=== PATIENT | female | born 1975 | race Caucasian/White ===

== ENCOUNTER 2018-09-10 14:12 | Emergency (ER) | payer OTHER ==
[2018-09-10] MEDS ORDERED: KETOROLAC 15 MG/1 ML SDV IVP ONE (15:00)
[2018-09-10] MEDS ORDERED: NS 1,000 ML IV ONE (15:00)
--- NOTE | 2018-09-10 15:07 | EDPHY ---
H & P Stated Complaint: abd pain, bloating, warm sensation started yesterday. s/p gall bladder Time Seen by Provider: 09/10/18 14:47 HPI/ROS: Chief Complaint: Abdominal pain, fevers, malaise HPI: 43-year-old woman who is 5 days status post emergency cholecystectomy is presenting with upper abdominal pain, fever, malaise and fatigue. Patient states she was flying back from [place] and developed severe upper abdominal and chest pain. The flight was diverted to [place]. In the hospital leak in the breast the patient was diagnosed with what sounds like acute cholecystitis and underwent emergency cholecystectomy. Patient states she was borderline septic and received IV antibiotics in the hospital but was not discharged on any antibiotics. She did have some residual pain which she attributed to the CO2 which is resolved over the course of the last 2 days has been having a worsening burning sensation in her upper abdomen. Pain is about a 7/10. She did have some constipation but that was relieved with Fleet's enema. She has had some subjective chills and fever, general flu-like symptoms, malaise, body aches, no shortness of breath. No cough. No nausea or vomiting. ROS: 10 systems were reviewed and were negative except those elements noted in the HPI. PMH: Perimenopausal Social History: No smoking, no alcohol, no recreational drug use Family History: non-contributory Physical Exam: Gen: Awake, Alert, No Distress HEENT: Nose: no rhinorrhea Eyes: PERRLA, EOMI Mouth: Moist mucosa Neck: Supple, no JVD Chest: nontender, lungs clear to auscultation Heart: S1, S2 normal, no murmur Abd: Soft, four intact laparoscopy incisions which are nontender, no erythema,. Abdomen is mild diffuse tenderness, soft. Moderate epigastric tenderness, no guarding Back: no CVA tenderness, no midline tenderness Ext: no edema, non-tender Skin: no rash Neuro: CN II-XII intact, Sensation grossly intact, Strength 5/5 in bilateral upper and lower extremities - Personal History LMP (Females 10-55): 1-7 Days Ago Tetanus Vaccine Date: 2016 - Medical/Surgical History Hx Asthma: No Hx Chronic Respiratory Disease: No Hx Diabetes: No Hx Cardiac Disease: No Hx Renal Disease: No Hx Cirrhosis: No Hx Alcoholism: No Hx HIV/AIDS: No Hx Splenectomy or Spleen Trauma: No Other PMH: neck surgery,ruptured ovarian cyst,appy, gall bladder - Social History Smoking Status: Never smoked Constitutional: Initial Vital Signs Temperature (C) 36.4 C 09/10/18 14:20 Heart Rate 82 09/10/18 14:20 Respiratory Rate 18 09/10/18 14:20 Blood Pressure 150/85 H 09/10/18 14:20 O2 Sat (%) 100 09/10/18 14:20 O2 Delivery Mode Room Air Allergies/Adverse Reactions: Penicillins Allergy (Severe, Verified 09/10/18 14:19) Other-Enter Comments Sulfa (Sulfonamide Antibiotics) Allergy (Verified 09/10/18 14:19) Home Medications: Medication Instructions Recorded traMADol [Ultram 50 mg (*)] 50 - 100 mg PO Q4 PRN #20 tab 12/27/17 Hormone Replacement Therapy 09/10/18 Medical Decision Making - Diagnostics Imaging Results: Imaging Impressions Abdomen CT 09/10/18 14:59 Impression: 1. Postsurgical change of recent cholecystectomy without evidence of abscess or large bile leak. 2. Punctate nonobstructing right nephrolithiasis. Geo Agosto was notified of these findings by telephone at 3:59 PM on 2018 ED Course/Re-evaluation: 43-year-old with postoperative pain status post emergency cholecystectomy 5 days ago. CBC is normal. LFTs are normal. Influenza is negative. CT scan of the abdomen pelvis shows expected postoperative changes. No evidence of a bile leak or focal abscess. Plan will be for discharge, follow up with primary care next week. Continue oral hydration. Tylenol and motion. Avoid narcotics in ondansetron as these can be constipating. - Data Points Laboratory Results: 09/10/18 14:46 POC Sodium 142 mEq/L mEq/L (135-145) POC Potassium 3.7 mEq/L mEq/L (3.3-5.0) POC Chloride 110.0 mEq/L mEq/L (97-110) POC Total CO2 27 mEq/L mEq/L (22-31) POC BUN 9 mg/dL mg/dL (7-23) POC Creatinine 0.7 mg/dL mg/dL (0.6-1.0) POC Glucose 127 mg/dL H mg/dL (70-100) POC Calcium 9.3 mg/dL mg/dL (8.5-10.4) POC Total Bilirubin 0.9 mg/dL mg/dL (0.1-1.4) POC AST 28 IU/L IU/L (14-46) POC ALT 38 IU/L IU/L (9-52) POC Alk Phosphatase 85 IU/L IU/L (38-126) POC Total Protein 7.2 g/dL g/dL (6.3-8.2) POC Albumin 3.8 g/dL g/dL (3.5-5.0) Medications Given: Discontinued Medications Sodium Chloride (Ns) 1,000 mls @ 0 mls/hr IV ONCE ONE; Wide Open PRN Reason: Protocol Stop: 09/10/18 15:01 Last Admin: 09/10/18 15:33 Dose: 1,000 mls Ketorolac Tromethamine (Toradol) 15 mg IVP EDNOW ONE Stop: 09/10/18 15:01 Last Admin: 09/10/18 15:33 Dose: 15 mg Metoclopramide HCl (Reglan Injection) 10 mg IVP EDNOW ONE Stop: 09/10/18 15:44 Last Admin: 09/10/18 15:45 Dose: 10 mg Point of Care Test Results: CBC CBC Collection Date 09/10/18 CBC Collection Time 14:40 WBC 8.25 RBC 4.72 HGB 15.5 HCT 43.0 PLT 207 Neut # 5.11 Neut 61.9 LYMPH # 2.45 LYMPH 29.7 MCV 91.1 Chemistry 09/10/18 14:46 POC Sodium 142 mEq/L mEq/L (135-145) POC Potassium 3.7 mEq/L mEq/L (3.3-5.0) POC Chloride 110.0 mEq/L mEq/L (97-110) POC Total CO2 27 mEq/L mEq/L (22-31) POC BUN 9 mg/dL mg/dL (7-23) POC Creatinine 0.7 mg/dL mg/dL (0.6-1.0) POC Glucose 127 mg/dL H mg/dL (70-100) POC Calcium 9.3 mg/dL mg/dL (8.5-10.4) POC Total Bilirubin 0.9 mg/dL mg/dL (0.1-1.4) POC AST 28 IU/L IU/L (14-46) POC ALT 38 IU/L IU/L (9-52) POC Alk Phosphatase 85 IU/L IU/L (38-126) POC Total Protein 7.2 g/dL g/dL (6.3-8.2) POC Albumin 3.8 g/dL g/dL (3.5-5.0) Urine Dip Collection Date 09/10/18 Collection Time 14:30 Specific [place] (1.002-1.030) 1.020 PH (5.0-7.5) 6.5 Leukocytes (Negative) Negative Nitrites (Negative) Negative Protein (Negative) Negative Glucose (Negative) Negative Ketones (Negative) Negative Urobilnogen (0.2-1.0 EU) 0.2 Bilirubin (Negative) Negative Blood (Negative) Negative Departure - Departure Disposition: Home, Routine, Self-Care Clinical Impression: Abdominal pain, Constipation Condition: Good Instructions: Acute Abdominal Pain (ED), Constipation (ED) Additional Instructions: Increase the fiber in your diet, either through increasing high-fiber fruits and vegetables or adding a fiber supplement like Metamucil. Make sure to drink plenty of water every day. You may take MiraLax daily according to package instructions. If you feel constipated drink 1/2 bottle of magnesium citrate. Wait 1-2 hours. If you do not have a bowel movement after that time drink the 2nd half of the bottle. If you continues to be constipated you may use a Fleet's enema, available over- the-counter. Follow up with primary care physician in 3-4 days for further evaluation. Return to the emergency department for increasing abdominal pain, uncontrolled nausea vomiting, worsening constipation, fevers, or any other concerns. Referrals: Deanna Polanco [Primary Care Provider] - As per Instructions
[2018-09-10] MEDS ORDERED: IOPAMIDOL (ISOVUE-300) 100 ML BTL ONE (15:14)
[2018-09-10] MEDS ORDERED: METOCLOPRAMIDE 10 MG/2 ML VIAL ONE (15:41)
[2018-09-10] MEDS ORDERED: METOCLOPRAMIDE 10 MG/2 ML VIAL IVP ONE (15:43)
[2018-09-10 16:19] VITALS: BP 126/62
== END 2018-09-10 16:18 | disposition home or self-care (01) ==
LOC: CED 14:12
DX: R10.10 Upper abdominal pain, unspecified (principal); K59.00 Constipation, unspecified; N20.0 Calculus of kidney; E86.9 Volume depletion, unspecified; Z98.890 Other specified postprocedural states; Z90.49 Acquired absence of other specified parts of digestive tract
CPT/HCPCS: 74177-PO; 80053-ER; 96361-ER; 96374-ER; 96375-ER; J1885; J2765; Q9967